=== PATIENT | female | born 1960 | race Two or more races ===

== ENCOUNTER 2021-06-23 05:44 | Day surgery (SDC) | payer OTHER | END 2021-06-23 14:45 | disposition home or self-care (01) | LOC: CIR.AMB 05:44 | PROVIDERS: ATTEND Obstetrics & Gynecology | DX: D25.0 Submucous leiomyoma of uterus (principal); N84.0 Polyp of corpus uteri; Z20.822 Contact with and (suspected) exposure to COVID-19 ==